=== PATIENT | female | born 1960 | race Caucasian/White ===

== ENCOUNTER 2023-02-23 09:51 | Emergency (ER) | payer BC ==
[2023-02-23 11:28] LABS: CORONAVIRUS COVID-19 NAA NEGATIVE (NEGATIVE); INFLUENZA A NAA NEGATIVE (NEGATIVE); INFLUENZA B NAA NEGATIVE (NEGATIVE); RESPIRATORY SYNCYTIAL VIR NAA NEGATIVE (NEGATIVE)
== END 2023-02-23 12:16 | disposition home or self-care (01) ==
LOC: JP.ED 09:51
DX: J40 Bronchitis, not specified as acute or chronic (principal); I10 Essential (primary) hypertension; E78.00 Pure hypercholesterolemia, unspecified; E03.9 Hypothyroidism, unspecified; Z79.899 Other long term (current) drug therapy; Z20.822 Contact with and (suspected) exposure to COVID-19; Z88.5 Allergy status to narcotic agent
CPT/HCPCS: 0241U; 99283